=== PATIENT | male | born 1945 | race Two or more races ===

== ENCOUNTER 2017-01-26 05:35 | Day surgery (SDC) | payer MEDICARE ==
[2017-01-26] MEDS ORDERED: CEFAZOLIN SODIUM/DEXTROSE,ISO 50 ML IV ONE (06:11)
[2017-01-26] MEDS ORDERED: IV LR 1000 ML 1,000 ML ONE (06:11)
[2017-01-26] MEDS ORDERED: NEEDLELESS EST SET LARGE BORE 1 EA INFUS.SET MC ONE (06:12)
[2017-01-26] MEDS ORDERED: IV SET PRIMARY 1 EA INFUS.SET MC ONE (06:12)
[2017-01-26] MEDS ORDERED: SECONDARY IV SET 1 EA INFUS.SET MC ONE (06:12)
[2017-01-26] MEDS ORDERED: BACITRACIN 50000 UNITS/VIAL ONE (06:31)
[2017-01-26] MEDS ORDERED: BUPIVACAINE 0.5 % PF 150 MG/30 ML VIAL ONE (07:11)
== END 2017-01-26 08:30 | disposition home or self-care (01) ==
LOC: DS 05:35
PROVIDERS: ATTEND Specialist
DX: G56.02 Carpal tunnel syndrome, left upper limb (principal); I10 Essential (primary) hypertension; I25.10 Atherosclerotic heart disease of native coronary artery without angina pectoris; E78.5 Hyperlipidemia, unspecified; K21.9 Gastro-esophageal reflux disease without esophagitis
CPT/HCPCS: 64721; J0690; J3490; J7120; A6402; J1100; J1885; J2001; J2405; J2704